=== PATIENT | male | born 1950 | race African-American/Black ===

== ENCOUNTER 2018-12-05 19:20 | Emergency (ER) | payer BC ==
[~2018-12-05] VITALS: Ht 175.3 cm; Wt 72.6 kg
--- NOTE | 2018-12-05 19:35 | NUR ---
ED Nurse Note: pt ambulatory to ed c/o of lower back pain d/t fall, unsure if head trauma occured. ao3-4; some forgetfulness. nad. vss.
[2018-12-05 20:05] VITALS: BP 147/70
--- NOTE | 2018-12-05 20:09 | NUR ---
ED Nurse Note: urine collected; sent down to lab.
--- NOTE | 2018-12-05 20:17 | NUR ---
ED Nurse Note: PT DOWN TO CT
[2018-12-05 20:18] LABS: APPEARANCE,URINE CLEAR; BILIRUBIN, URINE NEGATIVE (NEGATIVE); GLUCOSE, URINE (UA) NEGATIVE (NEGATIVE); KETONES,URINE NEGATIVE (NEGATIVE); LEUKOCYTE ESTERASE ,URINE 1+ (NEGATIVE); NITRITE,URINE NEGATIVE (NEGATIVE); PH,URINE 5 (4.5-8.0); PROTEIN,URINE 3+ (NEGATIVE); UROBILINOGEN,URINE NORMAL MG/DL (0.0-1.0)
[2018-12-05] MEDS ORDERED: TRAZODONE HCL150 MG ORAL (20:20)
[2018-12-05] MEDS ORDERED: SERTRALINE HCL25 MG ORAL (20:23)
[2018-12-05] MEDS ORDERED: PHENYTOIN125 MG/5 M PO (20:23)
[2018-12-05] MEDS ORDERED: ATORVASTATIN CA40 MG ORAL (20:23)
[2018-12-05] MEDS ORDERED: METOPROLOL TART50 M1 ORAL (20:23)
[2018-12-05] MEDS ORDERED: ACETAMINOPHEN500 M5 ORAL (20:23)
[2018-12-05] MEDS ORDERED: ASPIR 8181 MG ORAL (20:23)
[2018-12-05 20:27] LABS: COLOR,URINE YELLOW
--- NOTE | 2018-12-05 20:45 | Diagnostic Imaging Report ---
EXAM: CT Head Without Intravenous Contrast CLINICAL HISTORY: PAIN TECHNIQUE: Axial computed tomography images of the head/brain without intravenous contrast. CTDI is 70.38 mGy and DLP is 1372 mGy-cm. One or more of the following dose reduction techniques were used: automated exposure control, adjustment of the mA and/or kV according to patient size, use of iterative reconstruction technique. COMPARISON: none FINDINGS: Brain: Generalized parenchymal volume loss. 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 No hemorrhage. No significant white matter disease. Ventricles: Unremarkable. No ventriculomegaly. Bones/joints: Unremarkable. No acute fracture. Soft tissues: Unremarkable. Sinuses: Unremarkable as visualized. No acute sinusitis. Mastoid air cells: Unremarkable as visualized. No mastoid effusion. IMPRESSION: No acute intracranial pathology.
--- NOTE | 2018-12-05 20:54 | Diagnostic Imaging Report ---
EXAM: CT Lumbar Spine Without Intravenous Contrast CLINICAL HISTORY: PAIN TECHNIQUE: Axial computed tomography images of the lumbar spine without intravenous contrast. CTDI is 11.82 mGy and DLP is 351 mGy-cm. One or more of the following dose reduction techniques were used: automated exposure control, adjustment of the mA and/or kV according to patient size, use of iterative reconstruction technique. COMPARISON: none FINDINGS: Vertebrae: 5 lumbar-type vertebrae showing preserved vertebral body heights with no demineralization or acute fracture. There is mild straightening of the lumbar spine but no listhesis. There is disc osteophyte complexes at L3-L4 and at L4-L5 that along with facet hypertrophy results in moderate bilateral foraminal narrowing. Discs/spinal canal/neural foramina: Multilevel degenerative spondylosis with asymmetric disc space narrowing on the right at L4-L5 resulting in mild leftward lateral listhesis of L4 on L5. Soft tissues: Unremarkable. IMPRESSION: Lumbar spine degenerative changes with no acute or aggressive appearing osseous lesions.
[2018-12-05] MEDS ORDERED: LIDOCAINE700 M1 TP (21:10)
[2018-12-05 21:35] VITALS: BP 147/70
--- NOTE | 2018-12-05 21:35 | NUR ---
ER DISCHARGE NOTE: Patient is cleared to be discharged per ERMD, pt is aox4, on room air, with stable vital signs. accompanied by family member. pt was given dc and prescription instructions, pt was able to verbalize understanding, pt id band and iv site removed without complications. pt is able to ambulate with steady gait. pt took all belongings.
--- NOTE | 2018-12-05 23:09 | Emergency Room Report ---
History of Present Illness General Chief Complaint: Lower Back Pain or Injury Source: Patient Present Illness HPI Patient is a 68 patient had not been having a fever.-year-old male brought in by family member after increased low back pain. Patient had prior history of recent falls. He was noted to have some prior history of mild cognitive impairment. Patient had worsening pain with movement. He had not been having any fever. He denies any pain to his extremities. patient had episodic back pain in the past. He had not been having any vomiting or diarrhea. He denies any headache or neck pain. Allergies: Coded Allergies: LORAZEPAM (Verified Allergy, Unknown, Hives, 12/05/18) Patient History Past Medical History: see triage record Reviewed Nursing Documentation: PMH: Agreed; PSxH: Agreed Nursing Documentation-PMH Past Medical History: No History, Except For Hx Hypertension: Yes Hx Seizures: Yes Review of Systems All Other Systems: negative except mentioned in HPI Physical Exam Vital Signs Date Time Temp Pulse Resp B/P (MAP) Pulse Ox O2 Delivery O2 Flow Rate FiO2 12/05/18 19:25 98.4 90 16 147/70 (95) 98 Room Air General Appearance: no apparent distress, alert, GCS 15, Chronically Ill Head: normocephalic, atraumatic ENT: hearing grossly normal, normal voice Neck: supple, limited range of motion Respiratory: lungs clear, normal breath sounds, no respiratory distress, speaking full sentences Cardiovascular #1: normal inspection, no edema Gastrointestinal: normal inspection, non tender, soft Musculoskeletal: normal inspection Neurologic: normal inspection, alert, oriented x3, responsive, nurse executive III-XII nml as tested Psychiatric: normal inspection, mood/affect normal Skin: no rash Medical Decision Making Diagnostic Impression: Primary Impression: Back pain ER Course Patient presented for back pain after a fall. Differential diagnosis include was not limited to fracture, spinal stenosis, disc herniation, abscess among others. CT imaging of the head as well as the spine were ordered due to patient 's recent trauma. CT imaging read by radiology showed multilevel degenerative changes without evident fracture. Patient was noted to have no evidence of subdural hematoma or acute CVA on CT imaging. Patient was given medications for discomfort with some improvement. Patient was discharged home with his daughter. Patient appears to be stable for outpatient management and follow-up with his primary care physician. Labs Test 12/05/18 19:40 Urine Color Yellow Urine Appearance Clear Urine pH 5 (4.5-8.0) Urine Specific [place] 1.025 (1.005-1.035) Urine Protein 3+ (NEGATIVE) Urine Glucose (UA) Negative (NEGATIVE) Urine Ketones Negative (NEGATIVE) Urine Blood 3+ (NEGATIVE) Urine Nitrite Negative (NEGATIVE) Urine Bilirubin Negative (NEGATIVE) Urine Urobilinogen Normal MG/DL (0.0-1.0) Urine Leukocyte Esterase 1+ (NEGATIVE) Urine RBC 0-2 /HPF (0 - 0) Urine WBC 0-2 /HPF (0 - 0) Urine Squamous Epithelial Cells Few /LPF (NONE/OCC) Urine Amorphous Sediment Few /LPF (NONE) Urine Bacteria Moderate /HPF (NONE) Last Vital Signs Date Time Temp Pulse Resp B/P (MAP) Pulse Ox O2 Delivery O2 Flow Rate FiO2 12/05/18 21:35 98.4 84 16 147/70 98 Room Air Status: improved Disposition: HOME, SELF-CARE Condition: Stable Scripts Lidocaine (Lidocaine) 1 Each Adh..patch 5 % TP DAILY, #30 PATCH Prov: Shoaib Doss MD 12/05/18 Referrals: Chip Woodward MD (PCP) Patient Instructions: Back Pain, Adult Additional Instructions: Follow up with your doctor for recheck. Return if worse. Shoaib Doss MD Dec 05, 2018 23:09
== END 2018-12-05 21:50 | disposition home or self-care (01) ==
LOC: EMR 21:49
DX: M54.5 Low back pain (principal); Z88.8 Allergy status to other drugs, medicaments and biological substances; I10 Essential (primary) hypertension; G40.909 Epilepsy, unspecified, not intractable, without status epilepticus; F03.90 Unspecified dementia, unspecified severity, without behavioral disturbance, psychotic disturbance, mood disturbance, and anxiety
CPT/HCPCS: 70450; 72131; 81003; 87086; 87181; 99284